=== PATIENT | female | born 1990 | race Caucasian/White ===

== ENCOUNTER 2024-09-30 10:28 | Outpatient (CLI) | payer OTHER, SELFPAY | END 2024-09-30 10:29 | disposition home or self-care (01) | PROVIDERS: Visit Provider Obstetrics & Gynecology | DX: Z01.419 Encounter for gynecological examination (general) (routine) without abnormal findings (principal); Z31.69 Encounter for other general counseling and advice on procreation | CPT/HCPCS: 86705; 86706; 86787; 87340 ==

== ENCOUNTER 2025-03-03 13:51 | Outpatient (CLI) | payer OTHER, SELFPAY ==
--- NOTE | 2025-03-03 14:00 | CRLHL7_ITS ---
For Patients: As a result of the Cures Act, medical imaging exams and procedure reports are released immediately into your electronic medical record. You may view this report before your referring provider. If you have questions, please contact your health care provider. OBSTETRICAL ULTRASOUND TRANSVAGINAL ??? FIRST TRIMESTER, 03/03/2025 CLINICAL INDICATION: Dating and viability. LMP: 01/01/2025 ELISE by LMP: 10/08/2025 Gestational age: 8 weeks 5 days Previous ultrasound: No TECHNIQUE: Real-time robison-scale imaging of the fetus was performed transvaginal. FINDINGS: CRL: 1.6 cm, 8 weeks 0 days; ELISE 10/13/2025 heart rate: 171 BPM Gestational sac: 2.9 cm, appears within normal limits Yolk sac: 2.3 mm, appears within normal limits Right ovary: Within normal limits; 3.4 x 2.1 x 2.6 cm, CL Left ovary: Not visualized COMMENT: Corpus luteal cyst of right ovary, 2.3 x 1.7 x 2.1 cm. IMPRESSION: 1. Single living intrauterine measuring 8 weeks 0 days and sonographic due date of 10/13/2025. 2. Corpus luteal cyst of right ovary. Nonvisualization of left ovary. EDGAR FAM M.D. Diagnostic Radiologist [email or web address] Transcribed: 5:[address]/Dictated by: Edgar Fam MD @ 03/03/2025 4:01:00 PM (Electronically Signed)
== END 2025-03-03 13:52 | disposition home or self-care (01) ==
LOC: US 13:52
PROVIDERS: Visit Provider Physician Assistant
DX: Z34.91 Encounter for supervision of normal pregnancy, unspecified, first trimester (principal); O34.81 Maternal care for other abnormalities of pelvic organs, first trimester; N83.11 Corpus luteum cyst of right ovary; Z3A.08 8 weeks gestation of pregnancy
CPT/HCPCS: 76817; 83021; 86703; 86706; 86803; 86850; 86900; 86901; 87086; 87340; 87491; 87591

== ENCOUNTER 2025-03-03 14:50 | Outpatient (CLI) | payer OTHER, SELFPAY ==
[2025-03-03 18:21] LABS: Chlamydia DNA Amplified* NOT DETECTED (No Detected); GC DNA Amplified* NOT DETECTED (No Detected)
== END 2025-03-03 14:51 | disposition home or self-care (01) ==
PROVIDERS: Visit Provider Physician Assistant
DX: Z34.81 Encounter for supervision of other normal pregnancy, first trimester (principal)
CPT/HCPCS: 83020; 83021; 85660; 86592; 86703; 86704; 86706; 86762; 86787; 86803; 86850; 86900; 86901; 87086; 87340; 87491; 87591

== ENCOUNTER 2025-03-31 12:11 | Outpatient (CLI) | payer OTHER, SELFPAY ==
--- NOTE | 2025-03-31 12:15 | CRLHL7_ITS ---
For Patients: As a result of the Cures Act, medical imaging exams and procedure reports are released immediately into your electronic medical record. You may view this report before your referring provider. If you have questions, please contact your health care provider. OB ULTRASOUND FIRST TRIMESTER FOLLOW-UP TRANSABDOMINAL INDICATION: Viability, confirm accurate dating. TECHNIQUE: Real time robison scale imaging of the fetus was performed. Transabdominal imaging performed. LMP: 01/01/2025. ELISE by LMP: 10/08/2025. GA: 12 w, 5 d. Previous US: Yes 03/03/2025. ELISE by US: 10/13/2025. GA: 8 w, 0 d. CRL: 6.1 cm. 12 w 4 d. ELISE: 10/09/2025. FHR: 171 BPM. Gestational sac: Appears within normal limits. Yolk sac: N/V, anterior placenta. Right ovary: Within normal limits. 3.4 x 2.0 x 2.3 cm. CL. Left ovary: N/V. IMPRESSION: Single living intrauterine measuring 12 weeks 4 days and sonographic due date 10/09/2025. Edgar Becerra M.D. Diagnostic Radiologist [email or web address] SP/Dictated by: Edgar Becerra MD @ 03/31/2025 4:34:00 PM (Electronically Signed)
== END 2025-03-31 12:12 | disposition home or self-care (01) ==
LOC: US 12:12
PROVIDERS: Visit Provider Physician Assistant
DX: Z34.91 Encounter for supervision of normal pregnancy, unspecified, first trimester (principal); Z3A.12 12 weeks gestation of pregnancy
CPT/HCPCS: 76801

== ENCOUNTER 2025-08-22 09:08 | Outpatient (CLI) | payer OTHER, SELFPAY ==
--- NOTE | 2025-08-22 09:15 | CRLHL7_ITS ---
For Patients: As a result of the Century Cures Act, medical imaging exams and procedure reports are released immediately into your electronic medical record. You may view this report before your referring provider. If you have questions, please contact your health care provider. CLINICAL HISTORY: : Localized swelling, mass and lump, right axilla COMPARISON: None TECHNIQUE: Real-time ultrasound imaging of right axilla with imaging documentation. FINDINGS: Targeted sonogram to the area of concern within the right axilla performed. At anterior depth just beneath the skin is a cluster of cysts which measures 1.7 x 0.6 x 0.9 cm in total. No internal color flow. No distal acoustic shadowing. IMPRESSION: Benign cluster of cysts located beneath the skin in the right axilla measuring 1.7 x 0.6 x 0.9 cm. No suspicious findings. RECOMMENDATIONS: Clinical follow-up. Age-appropriate screening mammography. Results and recommendations were discussed with the patient at the time of the exam. A lay language report of this examination will be provided to the patient. BI-RADS Category 2. Benign. Dictated by Edgar Becerra MD @ 08/22/2025 10:30:17 AM (Electronically Signed)
== END 2025-08-22 09:09 | disposition home or self-care (01) ==
LOC: US 09:09
PROVIDERS: Visit Provider Registered Nurse
DX: R22.31 Localized swelling, mass and lump, right upper limb (principal)
CPT/HCPCS: 76882